=== PATIENT | male | born 1995 | race Two or more races ===

== ENCOUNTER 2019-10-31 06:55 | Emergency (ER) | payer SELFPAY ==
[2019-10-31 07:02] VITALS: BP 154/87
[2019-10-31] MEDS ORDERED: CEPHALEXIN 500 MG CAPSULE PO ONE (10:12)
--- NOTE | 2019-10-31 10:16 | ER Document Report ---
HPI - HPI Patient complains to provider of: Left great toe pain Time Seen by Provider: 10/31/19 09:05 Onset: Last week Onset/Duration: Persistent Quality of pain: Achy Pain Level: 3 Context: Patient presents complaining of toe pain to the left great toe. Patient states he had an ingrown toenail that has gotten infected. Patient states he had drainage last week and some purulent and bloody drainage yesterday. Patient denies any fever or trauma to the toe. Associated Symptoms: Other - Left great toe pain. denies: Fever Exacerbated by: Movement Relieved by: Denies Similar symptoms previously: No Recently seen / treated by doctor: No - ROS ROS below otherwise negative: Yes Systems Reviewed and Negative: Yes All other systems reviewed and negative - CONSTITUTIONAL Constitutional: DENIES: Fever, Chills - NEURO Neurology: DENIES: Weakness - MUSCULOSKELETAL Musculoskeletal: REPORTS: Extremity pain - DERM Skin Color: Normal Notes: Swelling, drainage to the toe Past Medical History - General Information source: Patient - Social History Smoking Status: Current Every Day Smoker Frequency of alcohol use: None Drug Abuse: None Occupation: [employer] Lives with: Family Family History: Reviewed & Not Pertinent Patient has suicidal ideation: No Patient has homicidal ideation: No - Medical History Medical History: Negative Surgical Hx: Negative Vertical Provider Document - CONSTITUTIONAL Agree With Documented VS: Yes Exam Limitations: No Limitations General Appearance: WD/WN, No Apparent Distress - HEENT HEENT: Atraumatic, Normocephalic - NECK Neck: Normal Inspection - RESPIRATORY Respiratory: Breath Sounds Normal, No Respiratory Distress - CARDIOVASCULAR Cardiovascular: Regular Rate, Regular Rhythm - MUSCULOSKELETAL/EXTREMETIES Musculoskeletal/Extremeties: MAEW, FROM - NEURO Level of Consciousness: Awake, Alert, Appropriate Motor/Sensory: No Motor Deficit - DERM Integumentary: Warm, Dry Notes: Paronychia to left great toenail along the medial edge, no purulent drainage Course - Re-evaluation Re-evalutation: 10/31/19 10:13 Patient with paronychia to left great toe. Patient's nail margin able to be visualized. Discussed with patient importance of keeping area clean and performing warm soaks several times each day. Will treat for infection at this time. Patient encouraged to trim nail across margin and not angle the cuts. Patient encouraged to follow-up with podiatry or dermatology for any persistent problems. - Vital Signs Vital signs: Temp Pulse Resp BP Pulse Ox 98.0 F 96 16 154/87 H 97 10/31/19 07:00 10/31/19 07:00 10/31/19 07:00 10/31/19 07:00 10/31/19 07:00 Discharge - Discharge Clinical Impression: Paronychia of toe of left foot Condition: Stable Disposition: HOME, SELF-CARE Instructions: Anti-Inflammatory Medication ([facility]), Cephalexin ([facility]), Paronychia ([facility]) Additional Instructions: Return immediately for any new or worsening symptoms Followup with your primary care provider, call tomorrow to make a followup appointment Warm soaks at least 3 times a day Follow-up with podiatry or dermatology for any persistent problems Prescriptions: Cephalexin Monohydrate [Keflex 500 mg Capsule] 500 mg PO Q6H 5 Days capsule Naproxen [Naprosyn 250 Nmg Tablet] 1 tab PO BID #14 tablet Forms: Return to Work Referrals: JONO COSTA DPM [ACTIVE STAFF] - Follow up as needed CHELA WORRELL DPM [ACTIVE STAFF] - Follow up as needed
== END 2019-10-31 10:33 | disposition home or self-care (01) ==
LOC: ER 06:55
DX: L03.032 Cellulitis of left toe (principal); M79.675 Pain in left toe(s); F17.200 Nicotine dependence, unspecified, uncomplicated
CPT/HCPCS: 99283

== ENCOUNTER 2020-01-18 01:07 | Emergency (ER) | payer SELFPAY ==
[2020-01-18] MEDS ORDERED: LIDOCAINE 1% INJ-PF (10 MG/ML) 30 ML SDV INJ ONE (03:11)
[2020-01-18] MEDS ORDERED: BUPIVACAINE HCL 0.5 % INJ/PF 30 ML SDV INJ ONE (03:13)
--- NOTE | 2020-01-18 03:14 | ER Document Report ---
HPI - HPI Time Seen by Provider: 01/18/20 02:42 Pain Level: 5 Context: Patient is a 24-year-old male that comes to the emergency department for chief complaint of ongoing and worsening pain in his right toe, he states he has an ingrown toenail. He was seen before for this once but did not have the nail removed. He states now the area is red, swollen, increasingly tender and hard to walk on. He denies fever/chills, nausea/vomiting, he reports his tetanus is up-to-date from the . He denies any other complaints, he denies any past medical history otherwise. - CONSTITUTIONAL Constitutional: DENIES: Fever, Chills - REPRODUCTIVE Reproductive: DENIES: : Past Medical History - General Information source: Patient - Social History Smoking Status: Current Every Day Smoker Frequency of alcohol use: None Drug Abuse: None Lives with: Alone Family History: Reviewed & Not Pertinent Patient has suicidal ideation: No Patient has homicidal ideation: No Surgical Hx: Negative - Immunizations Immunizations up to date: Yes Hx Diphtheria, Pertussis, Tetanus Vaccination: Yes Vertical Provider Document - CONSTITUTIONAL General Appearance: WD/WN, No Apparent Distress - INFECTION CONTROL TRAVEL OUTSIDE OF THE [place] IN LAST 30 DAYS: No - HEENT HEENT: Atraumatic, Normocephalic - NECK Neck: Normal Inspection - RESPIRATORY Respiratory: Breath Sounds Normal, No Respiratory Distress - CARDIOVASCULAR Cardiovascular: Regular Rate, Regular Rhythm - GI/ABDOMEN Gastrointestinal: Abdomen Soft, Abdomen Non-Tender. negative: Abdomen Tender - BACK Back: Normal Inspection - MUSCULOSKELETAL/EXTREMETIES Musculoskeletal/Extremeties: MAEW, FROM, Tender - The lateral aspect of the right great toe adjacent to the nail is very swollen, erythematous, and tender. There does appear to be an ingrown toenail as well. The erythema spreads slightly up the toe but does not extend to the foot. Normal capillary refill and sensation. Normal foot exam otherwise. - NEURO Level of Consciousness: Awake, Alert, Appropriate Motor/Sensory: No Motor Deficit, No Sensory Deficit - DERM Integumentary: Warm, Dry, No Rash Course - Re-evaluation Re-evalutation: Patient with an obvious ingrown toenail. We did attempt a digital block 3 times total, patient had some anesthesia but not complete anesthesia. Finally patient requested for me to proceed with this despite incomplete anesthesia. I was able to cut out the ingrown portion of the nail, patient yelled but he tolerated this very well. He was provided with pain medication. A large amount of skin was removed along with purulent drainage and small amount of bleeding. Foot was cleaned thoroughly. He was placed on antibiotics. Discussed care, follow-up, return precautions. Patient states understanding and agreement. - Vital Signs Vital signs: Temp Pulse Resp BP Pulse Ox 98.4 F 109 H 20 157/95 H 98 01/18/20 01:18 01/18/20 01:18 01/18/20 01:18 01/18/20 01:18 01/18/20 01:18 Discharge - Discharge Clinical Impression: Ingrown toenail of right foot, Skin infection Condition: Stable Disposition: HOME, SELF-CARE Additional Instructions: The ingrown nail was removed. Keep area clean, clean with soap and water, apply topical antibiotic dressing to the area. Take the antibiotic as prescribed. I recommend that you keep the foot elevated for the next 2-3 days as much as possible. Follow-up with the provisioning analyst to keep this from reoccurring. Return if you worsen including spreading redness, increased swelling, discolored dr ramandeep, fever, or any other concerning symptoms. Prescriptions: Cephalexin Monohydrate [Keflex 500 mg Capsule] 500 mg PO QID #28 capsule Referrals: PASQUALE GAR MD [NO LOCAL MD] - Follow up as needed
[2020-01-18] MEDS ORDERED: PROMETHAZINE HCL 25 MG TABLET PO ONE (05:48)
[2020-01-18] MEDS ORDERED: OXYCODONE-ACETAMINOPHEN 5-325 MG TABLET PO ONE (05:49)
[2020-01-18] MEDS ORDERED: HYDROCODONE/ACETAMINOPHEN 5-325 MG (6 TAB/ER DISP) PO PRN (05:56)
[2020-01-18 06:30] VITALS: BP 137/87
== END 2020-01-18 06:30 | disposition home or self-care (01) ==
LOC: ER 01:07
DX: L60.0 Ingrowing nail (principal); L08.9 Local infection of the skin and subcutaneous tissue, unspecified; M79.674 Pain in right toe(s); F17.200 Nicotine dependence, unspecified, uncomplicated
CPT/HCPCS: 99283